=== PATIENT | male | born 1970 | race Hispanic/Latino ===

== ENCOUNTER → 2019-08-26 | Outpatient (CLI) | payer BC ==
[~2019-08-26] MED LIST: IOPAMIDOL 370 MG/ML 200 ML INFUS..BTL INJ ONE; NITROGLYCERIN 0.4 MG SUBL ONE; SODIUM CHLORIDE 0.9% 100 ML 100 ML ONE
[2019-08-26 08:38] LABS: BLOOD UREA NITROGEN 13 mg/dL (7-26); BUN/CREATININE RATIO 18 (6-25); CREATININE, SERUM 0.73 mg/dL (0.72-1.25); EST GLOMERULAR FILTRATION RATE > 60 ML/MIN (60-)
--- NOTE | 2019-08-26 13:17 | Diagnostic Imaging Report ---
EXAM: CORONARY CTA WITHOUT CALCIUM SCORE INDICATION: ^[id number] ^[id number] ^STABLE ANGINA COMPARISON: None. TECHNIQUE: Multi-detector CT technology was employed (64 MDCT [employer]). Minimal slice thickness with retrospective gating was performed following the intravenous administration of contrast material. The patient was premedicated with 0.4 mg sublingual nitroglycerin for coronary dilation. No need to administer beta christiano due to low heart rate during the exam. IV CONTRAST: 100 mL of Isovue-370 ORAL CONTRAST: None COMPLICATIONS: None RADIATION DOSE: Total DLP: 1315 mGy*cm Estimated effective dose: (DLP x 0.015 x size factor) mSv CTDIvol has been reviewed. It is below the limits set by the Radiation Protocol Committee (RPC). For optimization of anatomic evaluation, multiplanar reconstruction, maximum intensity projections, and advanced 3-D off-line postprocessing were performed on a dedicated stand-alone workstation under the direct supervision of the interpreting physician. QUALITY: Excellent FINDINGS: CORONARY ANATOMY: There is abnormal origin of the coronary arteries. The left main coronary artery arises from the right sinus of Valsalva, just above the ostium of the right coronary artery and bifurcates into a small LAD and large LCx at the distal interventricular groove. Left Main Coronary Artery: The anomalous left main is a long and large sized vessel, measuring 6 mm in diameter, which arises from the right sinus of Valsalva, has a pre pulmonic course, and then bifurcates into the LAD and circumflex at the basal interventricular groove. It also gives origin to the conus branch. There is no evidence of atherosclerotic changes or stenotic disease. Left Anterior Descending Coronary Artery: The LAD is a relative small size vessel (3 mm) that begins near the base of the interventricular groove. It gives rise to 2 acute diagonal branches. There is no evidence of atherosclerotic changes or stenotic disease. Left Circumflex Coronary Artery: The LCX is a large size vessel, which is non-dominant. It gives rise to 3 obtuse marginal branches. There is no evidence of atherosclerotic changes or stenotic disease. Right Coronary Artery: The RCA is a normal size vessel, which is dominant. It gives rise to AV shae branch, and 2 acute marginal branches. In its mid segment supplies the PV branch and in its distal segment supplies the PDA. There is no evidence of atherosclerotic changes or stenotic disease. CARDIAC MORPHOLOGY AND FUNCTION: The right and left atria and ventricles are morphologically normal. LIMITED CHEST: Limited views of the visualized chest show no abnormality within chest wall and mediastinum. No mediastinal lymphadenopathy. The visualized lungs are clear. The visualized portions of the ascending and descending thoracic aorta are of normal size. LIMITED ABDOMEN: Limited images of the upper abdomen reveal no abnormalities of the visualized organs. BONES: No acute osseous abnormalities. 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 No evidence of atherosclerotic changes or stenotic disease. Reference: [email or web address] Signed by: Dr. Jessica Juárez M.D. on 08/26/2019 1:14 PM
== END ==
LOC: CT 07:17
PROVIDERS: ATTEND Internal Medicine Interventional Cardiology
DX: Q24.5 Malformation of coronary vessels (principal)
CPT/HCPCS: 36415; 75574; 82565; 84520; Q9967